=== PATIENT | female | born 1990 | race Hispanic/Latino ===

== ENCOUNTER 2017-12-08 20:28 | Emergency (ER) | payer MEDICAID ==
[2017-12-09] MEDS ORDERED: TESSALON PERLES PO ONE (00:04)
--- NOTE | 2017-12-09 00:33 | XRay Report ---
FINAL REPORT PROCEDURE: XR CHEST ROUTINE 2V TECHNIQUE: PA and lateral chest radiographs were obtained. CPT 29840 HISTORY: cough COMPARISON: No prior studies are available for comparison. FINDINGS: Heart: Normal. Mediastinum/Vessels: Normal. Lungs/Pleural space: Normal. Bony thorax: No acute osseous abnormality. Other: IMPRESSION: Normal examination.
--- NOTE | 2017-12-09 00:38 | Emergency Department Report ---
- General Chief Complaint: Upper Respiratory Infection Stated Complaint: CHEST CONGESTION/COUGHING/ Time Seen by Provider: 12/09/17 00:03 Source: patient Mode of arrival: Ambulatory Limitations: No Limitations - History of Present Illness Initial Comments: This is a 27-year-old female nontoxic, well nourished in appearance, no acute signs of distress presents to the ED with c/o of productive cough, rhinorrhea, nasal congestion x2 weeks. Patient describes productive cough as yellow mucus production. Patient denies any sick contacts. Patient denies any recent travels, long car, recent hospital stays. Patient denies any calf pain or calf tenderness. Patient denies any chest pain, short of breath, fever, chills, nausea, vomiting, hemoptysis, numbness, tingling, headache or stiff neck. Patient denies any allergies. Past medical history includes asthma and psychiatric. MD Complaint: cough, rhinorrhea, nasal congestion -: week(s) (2) Severity: mild Improves With: nothing Worsens With: nothing Associated Symptoms: rhinorrhea, nasal congestion, cough. denies: fever, chills , myalgias, diaphoresis, headache, sore throat, stiff neck, chest pain, shortness of breath, abdominal pain, nausea, vomiting, diarrhea, dysuria, rash, confusion, right sweats, weight loss, epistaxis, hoarseness, ear pain Treatments Prior to Arrival: none - Related Data Home Medications Medication Instructions Recorded Confirmed Last Taken ALPRAZolam [Xanax] 0.5 mg PO BID PRN 11/14/12 01/28/14 01/17/13 22:00 Zolpidem [Ambien] 1 tab PO QDAY 12/29/12 01/28/14 01/17/13 22:00 But/Apap/Caf 1 tab PO Q4HR PRN 01/28/14 01/28/14 01/23/14 09:00 Sertaline Hcl 1 tab PO DAILY 01/28/14 01/28/14 01/27/14 22:00 Previous Rx's Medication Instructions Recorded Last Taken Type Docusate Sodium [Colace] 100 mg PO BID PRN #60 capsule 01/28/14 Unknown Rx Ibuprofen [Motrin] 800 mg PO Q8H PRN #60 tablet 01/28/14 Unknown Rx oxyCODONE /ACETAMINOPHEN [Percocet 1 tab PO Q6HR PRN #45 tablet 01/28/14 Unknown Rx 5/325] Labetalol [Normodyne TAB] 100 mg PO BID #60 tablet 01/30/14 Unknown Rx Azithromycin [Zithromax Z-TALAT] 250 mg PO DAILY #6 tablet 12/09/17 Unknown Rx Benzonatate [Tessalon Perle] 100 mg PO Q8H PRN #20 capsule 12/09/17 Unknown Rx Ibuprofen [Motrin] 600 mg PO Q8H PRN #10 tablet 12/09/17 Unknown Rx Allergies Allergy/AdvReac Type Severity Reaction Status Date / Time No Known Allergies Allergy Verified 12/29/12 16:08 ED Review of Systems ROS: Stated complaint: CHEST CONGESTION/COUGHING/ Other details as noted in HPI Constitutional: denies: chills, fever Eyes: denies: eye pain, eye discharge, vision change ENT: denies: ear pain, throat pain Respiratory: cough. denies: shortness of breath, wheezing Cardiovascular: denies: chest pain, palpitations Endocrine: no symptoms reported Gastrointestinal: denies: abdominal pain, nausea, diarrhea Genitourinary: denies: urgency, dysuria, discharge Musculoskeletal: denies: back pain, joint swelling, arthralgia Skin: denies: rash, lesions Neurological: denies: headache, weakness, paresthesias Psychiatric: denies: anxiety, depression Hematological/Lymphatic: denies: easy bleeding, easy bruising ED Past Medical Hx - Past Medical History Previous Medical History?: Yes Hx Hypertension: No (hyperlipidemia) Hx Congestive Heart Failure: No Hx Diabetes: No Hx Deep Vein Thrombosis: No Hx Renal Disease: No Hx Sickle Cell Disease: No Hx Seizures: No Hx Psychiatric Treatment: Yes (Anxiety, depresssion, and PTSD) Hx Asthma: Yes Hx COPD: No Hx HIV: No Additional medical history: anxiety. depression. ptsd. high choletrol - Surgical History Past Surgical History?: Yes Additional Surgical History: x2 - Social History Smoking Status: Never Smoker Substance Use Type: None - Medications Home Medications: Home Medications Medication Instructions Recorded Confirmed Last Taken Type ALPRAZolam [Xanax] 0.5 mg PO BID PRN 11/14/12 01/28/14 01/17/13 22:00 History Zolpidem [Ambien] 1 tab PO QDAY 12/29/12 01/28/14 01/17/13 22:00 History But/Apap/Caf 1 tab PO Q4HR PRN 01/28/14 01/28/14 01/23/14 09:00 History Docusate Sodium [Colace] 100 mg PO BID PRN #60 capsule 01/28/14 Unknown Rx Ibuprofen [Motrin] 800 mg PO Q8H PRN #60 tablet 01/28/14 Unknown Rx Sertaline Hcl 1 tab PO DAILY 01/28/14 01/28/14 01/27/14 22:00 History oxyCODONE /ACETAMINOPHEN [Percocet 1 tab PO Q6HR PRN #45 tablet 01/28/14 Unknown Rx 5/325] Labetalol [Normodyne TAB] 100 mg PO BID #60 tablet 01/30/14 Unknown Rx Azithromycin [Zithromax Z-TALAT] 250 mg PO DAILY #6 tablet 12/09/17 Unknown Rx Benzonatate [Tessalon Perle] 100 mg PO Q8H PRN #20 capsule 12/09/17 Unknown Rx Ibuprofen [Motrin] 600 mg PO Q8H PRN #10 tablet 12/09/17 Unknown Rx ED Physical Exam - General Limitations: No Limitations General appearance: alert, in no apparent distress - Head Head exam: Present: atraumatic, normocephalic - Eye Eye exam: Present: normal appearance Pupils: Present: normal accommodation - ENT ENT exam: Present: normal exam, mucous membranes moist - Neck Neck exam: Present: normal inspection, full ROM. Absent: tenderness, meningismus, lymphadenopathy - Respiratory Respiratory exam: Present: normal lung sounds bilaterally. Absent: respiratory distress, wheezes, rales, rhonchi, stridor, chest wall tenderness, accessory muscle use, decreased breath sounds, prolonged expiratory - Cardiovascular Cardiovascular Exam: Present: regular rate, normal rhythm, normal heart sounds. Absent: bradycardia, tachycardia, irregular rhythm, systolic murmur, diastolic murmur, rubs, gallop - GI/Abdominal GI/Abdominal exam: Present: soft, normal bowel sounds - Extremities Exam Extremities exam: Present: normal inspection, full ROM, normal capillary refill - Back Exam Back exam: Present: normal inspection, full ROM - Neurological Exam Neurological exam: Present: alert, oriented X3, normal gait - Psychiatric Psychiatric exam: Present: normal affect, normal mood - Skin Skin exam: Present: warm, dry, intact, normal color. Absent: rash ED Course Vital Signs 12/08/17 21:02 Temperature 98.4 F Pulse Rate 83 Respiratory 18 Rate Blood Pressure 134/83 O2 Sat by Pulse 97 Oximetry - Reevaluation(s) Reevaluation #1: 12/09/17 00:36 Patient is speaking in full sentences with no signs of distress noted. ED Medical Decision Making - Medical Decision Making This is a 27-year-old female that presents with bronchitis. Patient is stable and was examined by me. Chest x-ray has been obtained and dictated by radiologist with normal exam. Patient is notified of x-ray results with no questions noted. Due to patient having symptoms of upper respiratory infection and worsening I will treat patient empirically with zpak. Patient was instructed to increase hydration, rest and take Motrin for fever episodes. Patient received tesslone perrls in the ED. Vitals stable. Patient is nonfebrile and normal heart rate. Patient was instructed Follow-up with a primary care doctor in 3-5 days or if symptoms worsen and continue return to emergency room as soon as possible. At time time of discharge, the patient does not seem toxic or ill in appearance. No acute signs of distress noted. Patient agrees to discharge treatment plan of care. No further questions noted by the patient. Critical care attestation.: If time is entered above; I have spent that time in minutes in the direct care of this critically ill patient, excluding procedure time. ED Disposition Clinical Impression: Bronchitis Disposition: DC-01 TO HOME OR SELFCARE Is pt being admited?: No Does the pt Need Aspirin: No Condition: Stable Instructions: Acute Bronchitis (ED) Additional Instructions: Follow-up with a primary care doctor in 3-5 days or if symptoms worsen and continue return to emergency room as soon as possible. Prescriptions: Azithromycin [Zithromax Z-TALAT] 250 mg PO DAILY #6 tablet Benzonatate [Tessalon Perle] 100 mg PO Q8H PRN #20 capsule PRN Reason: Cough Ibuprofen [Motrin] 600 mg PO Q8H PRN #10 tablet PRN Reason: Pain/Fever Referrals: PRIMARY MD YESICA [Referring] - 3-5 Days JASSI REED MD [Staff Physician] - 3-5 Days [facility] [Outside] - 3-5 Days [facility] [Outside] - 3-5 Days Forms: Work/School Release Form(ED)
[2017-12-09 01:11] VITALS: BP 129/78
== END 2017-12-09 01:14 | disposition home or self-care (01) ==
LOC: ED 20:28
DX: J40 Bronchitis, not specified as acute or chronic (principal); F41.9 Anxiety disorder, unspecified; E78.00 Pure hypercholesterolemia, unspecified; F32.9 Major depressive disorder, single episode, unspecified; F43.10 Post-traumatic stress disorder, unspecified
CPT/HCPCS: 71046; 99283

== ENCOUNTER 2018-10-09 16:26 | Outpatient (CLI) | payer MEDICAID ==
[2018-10-09] MEDS ORDERED: LACTATED RINGERS 1,000 ML IV SCH (18:00)
[2018-10-09 19:08] VITALS: BP 111/63
== END 2018-10-09 19:16 | disposition home or self-care (01) ==
LOC: TRG 16:26
PROVIDERS: ATTEND Obstetrics & Gynecology
DX: O26.892 Other specified pregnancy related conditions, second trimester (principal); R10.9 Unspecified abdominal pain; Z3A.22 22 weeks gestation of pregnancy

== ENCOUNTER 2018-12-08 17:21 | Outpatient (CLI) | payer MEDICAID ==
[2018-12-08 18:30] VITALS: BP 108/64
[2018-12-08] MEDS ORDERED: LACTATED RINGERS 500 ML IV ONE (19:05)
[2018-12-08 19:38] LABS: Bacteria,Urine 2+ /HPF (Negative); Bilirubin,Urine NEG (Negative); Blood,Urine NEG (Negative); Color,Urine Yellow (Yellow); Mucus,Urine FEW /HPF; Protein,Urine <15 mg/dL mg/dL (Negative); Urobilinogen,Urine < 2.0 mg/dL (<2.0)
[2018-12-08] MEDS ORDERED: LACTATED RINGERS 1,000 ML IV SCH (20:00)
[2018-12-08] MEDS ORDERED: ONDANSETRON 4 MG/2 ML INJ IM ONE (20:20)
--- NOTE | 2018-12-08 21:49 | Ultrasound Report ---
Biophysical profile INDICATION: well being breathing movements: 2/2 movements: 2/2 posturing tone: 2/2 Qualitative amniotic fluid volume: 2/2 Total score: 8/8 heart rate: 138 bpm IMPRESSION: Within normal limits Signer Name: Simon Rouse MD Signed: 12/08/2018 9:44 PM Workstation Name: [id number]
== END 2018-12-08 21:34 | disposition home or self-care (01) ==
LOC: TRG 17:21
PROVIDERS: ATTEND Obstetrics & Gynecology
DX: O36.8130 Decreased fetal movements, third trimester, not applicable or unspecified (principal); O26.893 Other specified pregnancy related conditions, third trimester; R51 Headache; R42 Dizziness and giddiness; R50.9 Fever, unspecified; O47.03 False labor before 37 completed weeks of gestation, third trimester; O99.283 Endocrine, nutritional and metabolic diseases complicating pregnancy, third trimester; E78.5 Hyperlipidemia, unspecified; O99.513 Diseases of the respiratory system complicating pregnancy, third trimester; J45.909 Unspecified asthma, uncomplicated; O99.343 Other mental disorders complicating pregnancy, third trimester; F41.9 Anxiety disorder, unspecified; F32.9 Major depressive disorder, single episode, unspecified; F43.10 Post-traumatic stress disorder, unspecified; Z3A.31 31 weeks gestation of pregnancy
CPT/HCPCS: 76819; 81001; 96372; J2405; J7120

== ENCOUNTER 2019-01-25 14:41 | Inpatient (IN) | payer MEDICAID ==
[2019-01-25 16:40] LABS: Hematocrit 33.1 % (30.3-42.9); Hemoglobin 11.4 gm/dl (10.1-14.3); Mean Corpuscular HGB Conc 34 % (30-34); Mean Corpuscular Volume 93 fl (79-97); Platelet Count 371 K/mm3 (140-440); Red Blood Count 3.54 M/mm3 (3.65-5.03); Red Cell Distribution Width 14.1 % (13.2-15.2)
[2019-01-25 16:50] LABS: Alanine Aminotransferase 18 units/L (7-56); Uric Acid 5.3 mg/dL (3.5-7.6)
[2019-01-25] MEDS ORDERED: METOCLOPRAMIDE 10 MG/2 ML INJ IV SCH (17:56)
[2019-01-25] MEDS ORDERED: FAMOTIDINE 20 MG/2 ML INJ IV SCH (17:56)
[2019-01-25] MEDS ORDERED: BICITRA ORAL LIQD 30ML PO SCH (17:56)
[2019-01-25] MEDS ORDERED: OXYTOCIN 20 UNIT/1000ML DRIP 20 UNITS/1,000 ML BAG IV SCH ×2 (18:00→23:45)
--- NOTE | 2019-01-25 18:59 | Anesthesia Consultation ---
Anesthesia Consult and Med Hx Date of service: 01/25/19 - Airway Anesthetic Teeth Evaluation: Good ROM Head & Neck: Adequate Mental/Hyoid Distance: Adequate Mallampati Class: Class II Intubation Access Assessment: Probably Good - Pulmonary Exam CTA: Yes - Cardiac Exam Cardiac Exam: RRR - Pre-Operative Health Status ASA Pre-Surgery Classification: ASA3 Proposed Anesthetic Plan: Spinal - Pulmonary Hx Asthma: Yes COPD: No Hx Pneumonia: No - Cardiovascular System Hx Hypertension: No (hyperlipidemia) - Central Nervous System Hx Seizures: No Hx Psychiatric Problems: Yes (PTSD, anxiety, depression) - Endocrine Hx Renal Disease: No Hx End Stage Renal Disease: No Hx Hypothyroidism: No Hx Hyperthyroidism: No - Hematic Hx Anemia: No Hx Sickle Cell Disease: No - Other Systems Hx Alcohol Use: No Hx Obesity: Yes
--- NOTE | 2019-01-25 18:59 | Anesthesia Day of Surgery ---
Anesthesia Day of Surgery - Day of Surgery Patient Examined: Yes Patient H&P Reviewed: Yes Patient is NPO: Yes
[2019-01-25] MEDS: LACTATED RINGERS 1,000 ML IV SCH ×2 (19:00→20:25)
--- NOTE | 2019-01-25 20:27 | History and Physical Report ---
History of Present Illness Date of examination: 01/25/19 Date of admission: 01/25/19 19:34 Chief complaint: elevated blood pressure, sent from the office History of present illness: Pt is a 28 year old female CECELIA 02/07/19 at 38w1d who presents directly from [facility] appt secondary to elevated blood pressures with recommendation for delivery. Pt reports good movement and denies vaginal bleeding or leakage of fluid. She has had care with comanagement by [facility] secondary to obesity, anxiety on Zoloft 50 mg, h/o gestational hypertension in a prior on low dose aspirin daily, grief ([id number] in Oct 2018), two prior sections,and GBS positive status. She was also informed of an trichomonal infection on her most recent vaginal culture that has not yet been treated. She also reports spots in her vision for the past two weeks and headaches for the same duration. She does believe she is "getting over a sinus infection." Past History Past Medical History: asthma, high cholesterol, other (obesity, depression ) Past Surgical History: section (x2 ) [employer] History: trichomonas (pt informed today ) Family/Genetic History: diabetes, heart disease, hypertension, cancer - Obstetrical History Expected Date of Delivery: 02/07/19 Actual Gestation: 38 Week(s) 1 Day(s) : 8 Para: 2 Hx # Term Pregnancies: 2 Number of Pregnancies: 0 Spontaneous Abortions: 5 Induced : 0 Number of Living Children: 2 Medications and Allergies Allergies Allergy/AdvReac Type Severity Reaction Status Date / Time No Known Allergies Allergy Verified 12/29/12 16:08 Home Medications Medication Instructions Recorded Confirmed Last Taken Type ALPRAZolam [Xanax] 0.5 mg PO BID PRN 11/14/12 01/28/14 01/17/13 22:00 History Zolpidem [Ambien] 1 tab PO QDAY 12/29/12 01/28/14 01/17/13 22:00 History But/Apap/Caf 1 tab PO Q4HR PRN 01/28/14 01/28/14 01/23/14 09:00 History Docusate Sodium [Colace] 100 mg PO BID PRN #60 capsule 01/28/14 Unknown Rx Ibuprofen [Motrin] 800 mg PO Q8H PRN #60 tablet 01/28/14 Unknown Rx Sertaline Hcl 1 tab PO DAILY 01/28/14 01/28/14 01/27/14 22:00 History oxyCODONE /ACETAMINOPHEN [Percocet 1 tab PO Q6HR PRN #45 tablet 01/28/14 Unknown Rx 5/325] labetaloL [Labetalol 100mg TAB] 100 mg PO BID #60 tablet 01/30/14 Unknown Rx Azithromycin [Zithromax Z-TALAT] 250 mg PO DAILY #6 tablet 12/09/17 Unknown Rx Benzonatate [Tessalon Perle] 100 mg PO Q8H PRN #20 capsule 12/09/17 Unknown Rx Ibuprofen [Motrin] 600 mg PO Q8H PRN #10 tablet 12/09/17 Unknown Rx Active Meds: Active Medications Citric Acid/Sodium Citrate (Bicitra) 30 ml PO ONCE MIKY Stop: 01/26/19 17:55 Famotidine (Pepcid) 20 mg IV ONCE MIKY Stop: 01/26/19 17:55 Lactated Ringer's (Lactated Ringers) 1,000 mls @ 2,250 mls/hr IV PREOP MIKY Stop: 01/26/19 18:27 Last Admin: 01/25/19 20:25 Dose: 999 mls/hr Documented by: Oxytocin/Sodium Chloride (Pitocin/Ns 20 Unit/1000ml Drip) 20 units in 1,000 mls @ 0 mls/hr IV TITR MIKY Cefazolin Sodium 2 gm/ Sodium (Chloride) 100 mls @ 200 mls/hr IV ONCE ONE; Protocol Stop: 01/25/19 20:55 Metoclopramide HCl (Reglan) 10 mg IV ONCE MIKY Stop: 01/26/19 17:55 Review of Systems All systems: negative - Vital Signs Vital signs: Vital Signs Temp 97.6 F 01/25/19 15:15 Temp Pulse Resp BP Pulse Ox 97.6 F 96 H 128/64 01/25/19 15:15 01/25/19 19:18 01/25/19 19:18 - Physical Exam Breasts: Positive: deferred Cardiovascular: Regular rate Lungs: Positive: Clear to auscultation Abdomen: Positive: soft (obese, gravid ) Genitourinary (Female): Positive: normal external genitalia Uterus: Positive: enlarged (gravid ) Extremities: Positive: edema (trace) - Obstetrical FHR: auscultation normal Uterine Contraction Monitor Mode: External Uterine Contraction Pattern: Irregular Uterine Tone Measurement Phase: Resting Results Result Diagrams: 01/25/19 Unknown 01/25/19 Unknown Abnormal lab results 01/25/19 01/25/19 Range/Units Unknown Unknown RBC 3.54 L (3.65-5.03) M/mm3 Creatinine 0.4 L (0.7-1.2) mg/dL Lactate Dehydrogenase 267 H (91-180) units/L All other labs normal. Assessment and Plan A: IUP at 38w1d PIH with severe features Obesity Anemia Trichomonas infection Previous x 2 P: Admit to labor and delivery Proceed with repeat section and other indicated procedures Flagyl 2 g
[2019-01-25] MEDS ORDERED: ceFAZolin/Water 2 GM/20 ML 2 GM/20 ML SYRINGE IV ONE (20:32)
[2019-01-25] MEDS ORDERED: SODIUM CHLORIDE 0.9% IRR 1,500 ML BOTTLE IR ONE (21:43)
[2019-01-25] MEDS ORDERED: WATER FOR IRRIG STERILE 1,500 ML BOTTLE IR ONE (21:43)
[2019-01-25] MEDS ORDERED: DEXMEDETOMIDINE 200 MCG/2 ML VIAL IV ONE (22:38)
[2019-01-25] MEDS ORDERED: KETOROLAC 30 MG/1 ML INJ ONE (22:38)
[2019-01-25] MEDS ORDERED: OXYTOCIN 10 UNIT/1 ML INJ ONE (22:38)
[2019-01-25] MEDS ORDERED: ONDANSETRON 4 MG/2 ML INJ ONE (22:38)
[2019-01-25] MEDS ORDERED: BUPIVACAINE/PF (0.5%) 5 MG/1 ML 30 ML VIAL INFILTRATI ONE (22:38)
[2019-01-25] MEDS ORDERED: NalbUPHINE 10 MG/1 ML INJ IV PRN (22:51)
--- NOTE | 2019-01-25 22:51 | Post Anesthesia Evaluation ---
- Post Anesthesia Evaluation Patient Participated: Yes Airway Patent: Yes Stable Respiratory Function: Yes Nausea/Vomiting: No Temp > 96.8F: Yes Pain Manageable: Yes Adequeate Hydration: Yes Anesthesia Complications: No Block Receding Appropriately: Yes
--- NOTE | 2019-01-25 22:58 | Procedure Note ---
OB Delivery Note - Delivery Date of Delivery: 01/26/19 Surgeon: SALO TORRES Estimated blood loss: other (800 mL) - Section Preop diagnosis: repeat , other (PIH ) Postop diagnosis: same section procedure: section, repeat low transverse Disposition: PACU Complications: none Narrative: Please see operative report. - A at 1 minute: 8 at 5 minutes: 9 Infant Gender: Female (2486g (5lb 8oz) @ 2156 pm)
--- NOTE | 2019-01-25 22:59 | Operative Report ---
Operative Report Operative Report: Date of procedure: January 25, 2019 Preoperative diagnosis: 1) IUP at 38w1d 2) PIH with severe features 3) Previous x 2 4)Obesity Postoperative diagnosis: Same Procedure: Repeat low transverse section Surgeon: Effie Duran M.D. Anesthesia: Regional Findings: 1) Viable female , Apgars 8 and 9, weight 2486g, (5 lb 8 oz) in cephalic presentation. Nuchal cord x 1. 2) Normal-appearing uterus ovaries and tubes Estimated blood loss: 1000 mL IV fluids:1100 mL Urine output: 50 mL, clear at the end of the procedure Drains: Wagner to gravity Specimens: Placenta to pathology Complications: Counts correct x 3 Disposition: Stable to PACU Indication for procedure: Pt is a 28 year old at 38w1d with a history of two prior sections who presents from the office with elevated blood pressures, headache, and scotomata. The decision was made to proceed with delivery. Operation in detail: After the risks, benefits, alternatives and complications were explained to the patient she gave informed consent for the procedure. She was subsequently taken to the operating room where regional anesthesia was noted to be adequate. She was subsequently placed in the dorsal supine position with leftward tilt and prepped and draped in a normal sterile fashion. heart tones were noted prior to incision. A timeout was performed. A Pfannenstiel skin incision was made with the knife and carried down to the layer of the fascia with the Bovie. The fascia was incised in the midline and the fascial incision was extended bilaterally with the Bovie. The fascial incision was then stretched. The rectus muscles were then in the midline. The peritoneum was then entered sharply between two Ashleigh clamps. The peritoneal incision was extended with good visualization of the bladder. The peritoneal incision was then stretched. An Bhupinder retractor was placed. The bladder blade was placed. The vesicouterine peritoneum was grasped with smooth pickups and incised with Metzenbaum scissors. Metzenbaum scissors were used to extend the incision bilaterally. The bladder flap was then created digitally and the bladder blade was replaced. A transverse incision was made in the lower uterine segment with a knife and extended bilaterally with the bandage scissors. The head was delivered without difficulty, nuchal cord was reduced followed by delivery of the shoulders and body. was bulb suctioned at delivery. The cord was clamped and cut and the was handed to NICU staff in attendance. The placenta was then delivered manually. The uterus was then exteriorized and cleared of all clots and debris. The hysterotomy was then reapproximated with 0 Vicryl in a running locked fashion. A second layer of the same suture was used in an imbricating fashion. The hysterotomy was inspected and hemostasis was noted. The uterus was placed back into the peritoneal cavity. The gutters were irrigated and cleared of all clots and debris. The hysterotomy was again inspected and noted to be hemostatic. Surgicel was placed over the hysterotomy. Intercede was placed over the anterior surface of the uterus. The peritoneum was reapproximated with 2-0 Vicryl in a running fashion incorporating the rectus muscles. The fascia was reapproximated with 0-Vicryl in a running fashion. The subcutaneous tissue was reapproximated with 3-0 Vicryl in a running fashion. The skin was reapproximated with 4-0 Vicryl in a subcuticular fashion. The incision was then covered with steri strips and a pressure dressing. The procedure was then ended. The patient tolerated the procedure well and was taken to the PACU in stable condition. All instrument, lap, and needle counts were correct 3.
[2019-01-25] MEDS ORDERED: ACETAMINOPHEN 500 MG TAB PO SCH (23:00)
[2019-01-25] MEDS ORDERED: LANOLIN/ZINC/DIMETHICONE (LANSINOH) 7 GM TP PRN (23:02)
[2019-01-25] MEDS ORDERED: IBUPROFEN 800 MG TAB PO PRN (23:02)
[2019-01-25] MEDS ORDERED: ONDANSETRON 4 MG/2 ML INJ IV PRN (23:02)
[2019-01-25] MEDS ORDERED: MAGNESIUM HYDROXIDE (MOM) ORAL LIQD UDC PO PRN (23:02)
[2019-01-25] MEDS ORDERED: CALCIUM GLUCONATE 1000 MG/10 ML INJ IV ONE (23:02)
[2019-01-25] MEDS ORDERED: MORPHINE 2 MG/1 ML INJ IV PRN (23:02)
[2019-01-25] MEDS ORDERED: SIMETHICONE 80 MG CHEW TAB PO PRN (23:02)
[2019-01-25] MEDS ORDERED: MORPHINE 4 MG/1 ML INJ IV PRN (23:02)
[2019-01-25] MEDS ORDERED: MAGNESIUM SULFATE 4 GM/100 ML BAG IV ONE (23:02)
[2019-01-25] MEDS ORDERED: WITCH HAZEL/ GLYCERIN PAD TP PRN (23:02)
[2019-01-25] MEDS ORDERED: NALOXONE 0.4 MG/1 ML INJ IV PRN (23:02)
[2019-01-25] MEDS ORDERED: LACTATED RINGERS 1,000 ML IV SCH (23:45)
[2019-01-25] MEDS ORDERED: D5W/LACTATED RINGERS 1,000 ML IV SCH (23:45)
[2019-01-25] MEDS ORDERED: metroNIDAZOLE/NS 1000 MG-200ML 1,000 MG in EMPTY BAG 0 ML IV SCH (23:45)
[2019-01-26] MEDS ORDERED: metroNIDAZOLE/NS 1000 MG-200ML 1,000 MG in EMPTY BAG 0 ML IV ONE (01:27)
[2019-01-26] MEDS: MAGNESIUM SULFATE 40GM/1000ML 40 GM/1,000 ML BAG IV SCH ×2 (02:11→17:23)
[2019-01-26] MEDS: KETOROLAC 30 MG/1 ML INJ IV SCH ×4 (04:26→18:16)
[2019-01-26] MEDS: ceFAZolin/NS 1 GM/50 ML 1 GM/50 ML BAG IV SCH ×2 (04:28→12:07)
--- NOTE | 2019-01-26 08:39 | Progress Note ---
Assessment and Plan A/P POD1 s/p repeat csec PIH on mag for 24hrs close monitor of VS mag levels routine PP care Subjective - Subjective Date of service: 01/26/19 Principal diagnosis: s/p repepat Patient reports: appetite normal, voiding normally, pain well controlled, flatus [place]: doing well Objective - Vital Signs Latest vital signs: Vital Signs Temp Pulse Resp BP Pulse Ox 01/26/19 08:33 88 96 01/26/19 08:32 77 134/81 01/26/19 08:28 82 95 01/26/19 08:23 78 96 01/26/19 08:18 88 97 01/26/19 08:13 91 H 96 01/26/19 08:08 87 97 01/26/19 08:03 90 151/75 96 01/26/19 07:58 92 H 96 01/26/19 07:53 96 H 96 01/26/19 07:48 88 96 01/26/19 07:43 94 H 96 01/26/19 07:38 88 96 01/26/19 07:33 86 96 01/26/19 07:32 92 H 136/91 01/26/19 07:28 89 97 01/26/19 07:23 89 96 01/26/19 07:18 95 H 96 01/26/19 07:13 101 H 96 01/26/19 07:08 82 95 01/26/19 07:03 80 96 01/26/19 07:02 79 141/85 01/26/19 06:58 82 96 01/26/19 06:53 86 96 01/26/19 06:48 77 97 01/26/19 06:43 78 96 01/26/19 06:38 87 97 01/26/19 06:33 70 96 01/26/19 06:32 81 131/86 01/26/19 06:28 88 97 01/26/19 06:23 99 H 97 01/26/19 06:22 78 94 01/26/19 06:18 71 95 01/26/19 06:16 72 94 01/26/19 06:13 77 96 01/26/19 06:10 78 93 01/26/19 06:08 84 95 01/26/19 06:03 83 120/69 95 01/26/19 05:58 81 96 01/26/19 05:53 79 96 01/26/19 05:48 81 96 01/26/19 05:45 98.7 F 12 01/26/19 05:43 82 97 01/26/19 05:39 93 H 90 01/26/19 05:38 96 H 97 01/26/19 05:33 77 125/72 94 01/26/19 05:28 82 96 01/26/19 05:23 79 95 01/26/19 05:19 81 90 01/26/19 05:18 85 91 01/26/19 05:14 79 94 01/26/19 05:13 79 96 01/26/19 05:08 78 92 01/26/19 05:03 70 124/73 98 01/26/19 04:58 72 97 01/26/19 04:53 70 98 01/26/19 04:51 78 91 01/26/19 04:48 88 96 01/26/19 04:44 79 93 01/26/19 04:43 77 96 01/26/19 04:38 72 96 01/26/19 04:33 86 145/86 96 01/26/19 04:28 80 96 01/26/19 04:23 94 H 97 01/26/19 04:18 87 98 01/26/19 04:13 84 97 01/26/19 04:08 88 96 01/26/19 04:03 86 140/79 96 01/26/19 03:58 94 H 97 01/26/19 03:53 95 H 97 01/26/19 03:52 86 94 01/26/19 03:48 96 H 96 01/26/19 03:43 97 H 97 01/26/19 03:38 85 96 01/26/19 03:35 97 H 93 01/26/19 03:33 85 129/78 96 01/26/19 03:28 89 96 01/26/19 03:24 90 92 01/26/19 03:23 77 94 01/26/19 03:18 80 96 01/26/19 03:13 73 96 01/26/19 03:08 82 97 01/26/19 03:06 97 H 94 01/26/19 03:03 74 119/74 96 01/26/19 02:58 79 97 01/26/19 02:57 87 93 01/26/19 02:53 82 95 01/26/19 02:48 80 95 01/26/19 02:46 93 H 90 01/26/19 02:43 77 96 01/26/19 02:39 94 H 93 01/26/19 02:38 82 94 01/26/19 02:33 83 123/70 97 01/26/19 02:28 82 96 01/26/19 02:23 74 97 01/26/19 02:18 70 97 01/26/19 02:03 73 123/79 01/26/19 01:26 66 121/75 01/26/19 00:35 68 128/77 01/26/19 00:00 14 01/25/19 23:55 98.5 F 83 20 121/86 96 01/25/19 23:40 55 L 17 121/66 97 01/25/19 23:25 69 19 116/74 99 01/25/19 23:10 76 16 120/80 98 01/25/19 23:00 81 14 122/72 97 01/25/19 22:55 65 12 122/68 98 01/25/19 22:50 98.5 F 71 16 123/71 98 01/25/19 22:48 98.5 F 85 14 125/58 97 01/25/19 19:18 96 H 128/64 01/25/19 19:15 97.9 F 14 01/25/19 17:33 103 H 142/91 01/25/19 17:17 107 H 131/73 01/25/19 17:03 101 H 153/100 01/25/19 16:47 86 130/70 01/25/19 16:32 90 139/87 01/25/19 16:18 103 H 131/71 01/25/19 16:01 88 138/83 01/25/19 15:46 98 H 135/81 01/25/19 15:31 97 H 139/86 01/25/19 15:15 97.6 F Intake and Output 01/25/19 01/26/19 01/26/19 23:59 07:59 15:59 Intake Total 3000 Output Total 620 150 Balance 2380 -150 Intake: IV 3000 Lactated Ringers 1,000 ml 1000 @ 2250 mls/hr IV PREOP [facility] Rx#:[id number] Output: Urine 620 150 Indwelling Catheter 200 150 Uretheral (Wagner) 270 Other: Total, Output Amount 200 150 Weight 95.708 kg Estimated Blood Loss 800 - Exam Breasts: Present: normal Cardiovascular: Present: Regular rate, Normal S1 Lungs: Present: Clear to auscultation, Normal air movement Abdomen: Present: normal appearance, soft, normal bowel sounds. Absent: distention, tenderness, guarding Uterus: Present: normal, firm, fundal height below umbilicus. Absent: bogginess, tenderness Extremities: Present: normal Deep Tendon Reflex Grade: Normal +2 Incision: Present: normal, dry, intact - Labs Labs: Abnormal lab results 01/25/19 01/25/19 Range/Units Unknown Unknown RBC 3.54 L (3.65-5.03) M/mm3 Creatinine 0.4 L (0.7-1.2) mg/dL Lactate Dehydrogenase 267 H (91-180) units/L
[2019-01-26] MEDS: oxyCODONE /ACETAMINOPHEN 5-325MG TAB PO PRN (09:24)
[2019-01-26 11:57] LABS: Hematocrit 31.8 % (30.3-42.9)
[2019-01-26] MEDS: ACETAMINOPHEN 325 MG TAB PO SCH ×2 (12:12→18:15)
[2019-01-26] MEDS: LACTATED RINGERS 1,000 ML IV SCH (17:22)
[2019-01-26] MEDS ORDERED: MEASLES, MUMPS & RUBELLA 12,500 UNIT/0.5 ML VACCINE SUB-Q ONE (23:03)
[2019-01-27] MEDS: KETOROLAC 30 MG/1 ML INJ IV SCH ×2 (00:13→06:15)
[2019-01-27] MEDS: ACETAMINOPHEN 325 MG TAB PO SCH ×4 (00:16→19:07)
[2019-01-27] MEDS ORDERED: TETANUS,DIPH,PERTUSS(ACELL) VACCINE 0.5 ML SYRINGE IM ONE (06:00)
[2019-01-27] MEDS: oxyCODONE /ACETAMINOPHEN 5-325MG TAB PO PRN ×2 (15:31→23:21)
--- NOTE | 2019-01-27 17:35 | Progress Note ---
Assessment and Plan POD2 s/p repeat and Mag Sulfate for gHTN Vital signs and labs stable Routine pp care Anticipate d/c to home tomorrow Subjective - Subjective Date of service: 01/27/19 Principal diagnosis: s/p repepat Interval history: Pt is POD2 s/p repeat c/s and Mag Sulfate for gHTN Patient reports: appetite normal, voiding normally, pain well controlled, flatus, ambulating normally : doing well, nursing well, bottle feeding (both) Objective - Vital Signs Latest vital signs: Vital Signs Temp Pulse Resp BP BP Pulse Ox 01/27/19 07:56 97.6 F 89 18 117/78 95 01/27/19 05:18 98.6 F 84 18 129/72 97 01/27/19 02:10 98.5 F 88 19 118/70 97 01/27/19 01:10 98 H 96 01/27/19 01:05 98 H 97 01/27/19 01:03 97 H 138/69 01/27/19 01:00 103 H 97 01/27/19 00:55 91 H 96 01/27/19 00:50 94 H 96 01/27/19 00:45 91 H 97 01/27/19 00:40 91 H 96 01/27/19 00:35 110 H 97 01/27/19 00:33 91 H 127/60 127/60 01/27/19 00:30 99 H 98 01/27/19 00:25 100 H 96 01/27/19 00:20 103 H 97 01/27/19 00:15 99 H 96 01/27/19 00:13 18 01/27/19 00:10 96 H 96 01/27/19 00:05 97 H 96 01/27/19 00:03 98.3 F 96 H 133/74 133/74 01/27/19 00:00 101 H 96 01/26/19 23:55 93 H 96 01/26/19 23:50 98 H 97 01/26/19 23:45 102 H 96 01/26/19 23:40 92 H 97 01/26/19 23:35 101 H 97 01/26/19 23:33 91 H 147/68 01/26/19 23:30 90 96 01/26/19 23:25 91 H 96 01/26/19 23:20 85 96 01/26/19 23:15 93 H 95 01/26/19 23:10 85 97 01/26/19 23:05 88 96 01/26/19 23:03 88 139/63 139/63 01/26/19 23:00 90 96 01/26/19 22:55 100 H 97 01/26/19 22:50 102 H 97 01/26/19 22:45 90 96 01/26/19 22:40 92 H 96 01/26/19 22:35 96 H 95 01/26/19 22:33 88 128/61 01/26/19 22:30 98 H 97 01/26/19 22:25 99 H 97 01/26/19 22:20 100 H 94 01/26/19 22:15 87 97 01/26/19 22:10 90 96 01/26/19 22:05 102 H 97 01/26/19 22:03 93 H 134/61 01/26/19 22:00 100 H 97 01/26/19 21:55 95 H 97 01/26/19 21:50 103 H 98 01/26/19 21:45 97 H 96 01/26/19 21:40 98 H 97 01/26/19 21:35 89 95 01/26/19 21:33 94 H 122/65 01/26/19 21:30 93 H 97 01/26/19 21:25 98 H 97 01/26/19 21:20 94 H 97 01/26/19 21:15 95 H 96 01/26/19 21:10 90 97 01/26/19 21:05 94 H 97 01/26/19 21:03 97 H 121/60 01/26/19 21:00 92 H 97 01/26/19 20:55 104 H 96 01/26/19 20:50 100 H 97 01/26/19 20:45 98 H 97 01/26/19 20:40 103 H 98 01/26/19 20:35 93 H 95 01/26/19 20:33 85 124/70 01/26/19 20:31 85 93 01/26/19 20:30 88 94 01/26/19 20:25 95 H 93 01/26/19 20:20 107 H 97 01/26/19 20:15 108 H 96 01/26/19 20:12 102 H 94 01/26/19 20:10 110 H 97 01/26/19 20:05 107 H 97 01/26/19 20:04 105 H 91 01/26/19 20:03 98.6 F 104 H 16 150/79 150/79 97 01/26/19 20:00 102 H 96 01/26/19 19:55 102 H 96 01/26/19 19:50 127 H 98 01/26/19 19:45 140 H 95 01/26/19 19:40 103 H 95 01/26/19 19:35 110 H 95 01/26/19 19:33 105 H 122/72 94 01/26/19 19:30 110 H 96 01/26/19 19:25 116 H 98 01/26/19 19:20 108 H 97 01/26/19 19:15 119 H 96 01/26/19 19:10 118 H 97 01/26/19 19:05 100 H 97 01/26/19 19:03 96 H 113/59 01/26/19 19:00 107 H 97 01/26/19 18:55 112 H 97 01/26/19 18:50 102 H 97 01/26/19 18:45 107 H 97 01/26/19 18:40 101 H 97 01/26/19 18:35 104 H 97 01/26/19 18:33 99 H 125/62 01/26/19 18:30 103 H 97 01/26/19 18:25 93 H 97 01/26/19 18:20 96 H 97 01/26/19 18:15 102 H 97 01/26/19 18:10 97 H 97 01/26/19 18:05 102 H 97 01/26/19 18:03 101 H 138/83 01/26/19 18:00 94 H 99 01/26/19 17:55 97 H 97 01/26/19 17:50 94 H 97 01/26/19 17:45 102 H 97 01/26/19 17:40 91 H 97 01/26/19 17:35 94 H 97 Intake and Output 01/27/19 01/27/19 01/27/19 07:59 15:59 23:59 Output Total 650 Balance -650 Output: Urine 650 Indwelling Catheter 650 Other: Total, Output Amount 601 - Exam Lungs: Present: Normal air movement Abdomen: Present: normal appearance, soft Uterus: Present: firm, fundal height below umbilicus Extremities: Present: normal Incision: Present: dressed - Labs Labs: Abnormal lab results 01/26/19 Range/Units 21:28 Magnesium 5.50 H (1.7-2.3) mg/dL
[2019-01-28] MEDS ORDERED: KETOROLAC 30 MG/1 ML INJ IV PRN
[2019-01-28] MEDS: ACETAMINOPHEN 325 MG TAB PO SCH (06:56)
--- NOTE | 2019-01-28 08:45 | Progress Note ---
Assessment and Plan POD3 s/p repeat and Mag Sulfate for gHTN Vital signs and labs stable Anticipate d/c to home today Subjective - Subjective Date of service: 01/28/19 Principal diagnosis: s/p repeat Interval history: Pt is POD3 s/p repeat c/s and Mag Sulfate for gHTN Patient reports: appetite normal, voiding normally, pain well controlled, flatus, ambulating normally [place]: doing well, bottle feeding (poor latch) Objective - Vital Signs Latest vital signs: Vital Signs Temp Pulse Resp BP BP Pulse Ox 01/27/19 23:30 98.7 F 66 18 116/59 01/27/19 23:21 20 01/27/19 16:07 97.9 F 94 H 18 129/77 97 Intake and Output 01/27/19 01/28/19 01/28/19 23:59 07:59 15:59 Intake Total 300 Balance 300 Intake: Intake, Free Water 300 Other: # Voids Void 2 1 - Exam Lungs: Present: Normal air movement Abdomen: Present: soft Uterus: Present: firm, fundal height below umbilicus Extremities: Present: normal Incision: Present: normal, suppurative (mild), intact
--- NOTE | 2019-01-28 08:47 | Discharge Summary ---
Providers - Providers Date of Admission: 01/25/19 19:34 Date of discharge: 01/28/19 Attending physician: SALO TORRES Primary care physician: SALO TORRES Hospitalization Reason for admission: section Delivery: Procedure: repeat low transverse Episiotomy: none Incision: normal, suppurative (mildly), intact complications: none Discharge diagnosis: IUP at term delivered baby: female Hospital course: Repeat c/s for gestational hypertension. Pt received Mag Sulfate x24hr . Condition at discharge: Good Disposition: DC-01 TO HOME OR SELFCARE Plan - Discharge Medications Prescriptions: Ferrous Sulfate [Ferrous Sulfate 324 MG] 324 mg PO BID #60 tablet. Ibuprofen [Motrin] 600 mg PO Q6H PRN #60 tablet PRN Reason: Pain oxyCODONE /ACETAMINOPHEN [Percocet 5/325] 1 tab PO Q6HR PRN #40 tablet PRN Reason: Pain - Provider Discharge Summary Activity: routine, no sex for 6 weeks, no heavy lifting 4 weeks, no strenuous exercise Diet: routine Instructions: routine Additional instructions: [] Smoking cessation referral if applicable(refer to patient education folder for contact #) [] Refer to [facility] Booklet Call your doctor immediately for: * Fever > 100.5 * Heavy vaginal bleeding ( >1 pad per hour) * Severe persistent headache * Shortness of breath * Reddened, hot, painful area to leg or breast * Drainage or odor from incision. * Keep incision clean and dry at all times and follow doctor's instructions regarding bathing/showering - Follow up plan Follow up: SALO TORRES MD [Primary Care Provider] - 7 Days (Please call [facility]'s to schedule appointment.)
[2019-01-28 17:21] VITALS: BP 142/80
== END 2019-01-28 15:30 | disposition home or self-care (01) | DRG 765 ==
LOC: TRG 14:41 → APU 19:34 → LD 01-26 02:32 → OB 01-27 02:12
PROVIDERS: ADMIT Obstetrics & Gynecology; ATTEND Obstetrics & Gynecology
PROC: 10D00Z1 Extraction of Products of Conception, Low, Open Approach (ICD-10-PCS; principal; 2019-01-25)
PROC: 3E0134Z Introduction of Serum, Toxoid and Vaccine into Subcutaneous Tissue, Percutaneous Approach (ICD-10-PCS; 2019-01-26)
PROC: 3E0234Z Introduction of Serum, Toxoid and Vaccine into Muscle, Percutaneous Approach (ICD-10-PCS; 2019-01-27)
DX: O13.4 Gestational [pregnancy-induced] hypertension without significant proteinuria, complicating childbirth (principal); O98.32 Other infections with a predominantly sexual mode of transmission complicating childbirth; O34.211 Maternal care for low transverse scar from previous cesarean delivery; O99.344 Other mental disorders complicating childbirth; O99.52 Diseases of the respiratory system complicating childbirth; F43.10 Post-traumatic stress disorder, unspecified; F41.9 Anxiety disorder, unspecified; F32.9 Major depressive disorder, single episode, unspecified; O99.214 Obesity complicating childbirth; E66.9 Obesity, unspecified; J45.909 Unspecified asthma, uncomplicated; O75.89 Other specified complications of labor and delivery; E78.5 Hyperlipidemia, unspecified; O69.81X0 Labor and delivery complicated by cord around neck, without compression, not applicable or unspecified; A59.8 Trichomoniasis of other sites; Z83.3 Family history of diabetes mellitus; Z80.9 Family history of malignant neoplasm, unspecified; Z82.49 Family history of ischemic heart disease and other diseases of the circulatory system; Z3A.38 38 weeks gestation of pregnancy; Z37.0 Single live birth; Z23 Encounter for immunization
CPT/HCPCS: 36415; 82565; 83615; 83735; 84450; 84460; 84550; 85014; 85018; 85027; 86850; 86900; 86901; 88307; 90707; 90715; G0378; C1765; J0690; J1885; J2405; J2590; J2765; J3475; J3490; J7120